=== PATIENT | female | born 1980 | race Caucasian/White ===

== ENCOUNTER 2017-11-23 10:15 | Emergency (ER) | payer OTHER ==
[2017-11-23 10:39] VITALS: BP 143/81
--- NOTE | 2017-11-23 11:02 | UC ---
Throat Pain/Nasal Paulino HPI - HPI Summary HPI Summary: Patient to urgent care today with chief complaint 2 days of worsening sinus pain earaches upper jaw and teeth pain. Patient feels like she can't breathe well through her nose. - History of Current Complaint Chief Complaint: UCEar Stated Complaint: EAR ACHE, AND TOOTH ACHE Time Seen by Provider: 11/23/17 10:47 Hx Obtained From: Patient Hx Last Menstrual Period: 09/08/14 ?: No Onset/Duration: Sudden Onset, Lasting Days - 2, Still Present, Worse Since - Last night Severity: Moderate Pain Intensity: 7 Pain Scale Used: 0-10 Numeric Cough: None Associated Signs & Symptoms: Positive: Sinus Discomfort, Nasal Discharge, Fever - Allergies/Home Medications Allergies/Adverse Reactions: Allergies Allergy/AdvReac Type Severity Reaction Status Date / Time Sulfa (Sulfonamide Allergy Flushing Verified 11/23/17 10:39 Antibiotics) PMH/Surg Hx/FS Hx/Imm Hx Previously Healthy: Yes - Surgical History Surgical History: Yes Surgery Procedure, Year, and Place: bartholine cyst removal 09/20 - lanced - Family History Known Family History: Positive: None - Social History Occupation: Employed Full-time Lives: With Family Alcohol Use: Rare Substance Use Type: None Smoking Status (MU): Never Smoked Tobacco Review of Systems Constitutional: Chills, Fatigue Skin: Negative Eyes: Negative ENT: Ear Ache, Nasal Discharge, Sinus Congestion, Sinus Pain/Tenderness Respiratory: Cough Cardiovascular: Negative Gastrointestinal: Negative Genitourinary: Negative Motor: Negative Neurovascular: Negative Musculoskeletal: Negative Neurological: Headache Psychological: Negative Is Patient Immunocompromised?: No All Other Systems Reviewed And Are Negative: Yes Physical Exam Triage Information Reviewed: Yes Appearance: Ill-Appearing, Pain Distress, Obese Vital Signs: Initial Vital Signs Temp 98.0 F 11/23/17 10:34 Pulse 116 11/23/17 10:34 Resp 20 11/23/17 10:34 BP 143/81 11/23/17 10:34 Pulse Ox 98 11/23/17 10:34 Vital Signs Reviewed: No Eye Exam: Normal Eyes: Positive: Conjunctiva Clear ENT Exam: Normal ENT: Positive: Normal ENT inspection, Hearing grossly normal, Pharynx normal, Nasal congestion, Nasal drainage - Mild, Dental tenderness, Sinus tenderness, Uvula midline. Negative: Tonsillar swelling, Tonsillar exudate, Trismus, Muffled voice, Hoarse voice Dental Exam: Normal Neck exam: Normal Neck: Positive: Supple, Nontender, No Lymphadenopathy Respiratory Exam: Normal Respiratory: Positive: Chest non-tender, Lungs clear, Normal breath sounds, No respiratory distress, No accessory muscle use Cardiovascular Exam: Normal Cardiovascular: Positive: Pulses Normal, Brisk Capillary Refill, Tachycardia Musculoskeletal Exam: Normal Musculoskeletal: Positive: Strength Intact, ROM Intact, No Edema Neurological Exam: Normal Neurological: Positive: Alert, Muscle Tone Normal Psychological Exam: Normal Skin Exam: Normal Throat Pain/Nasal Course/Dx - Course Assessment/Plan: Plan to increase fluids continue with Mucinex D Tylenol ibuprofen nasal sprays and nasal rinses. should symptoms worsen or fail to improve over the next 7 days patient may start antibiotics. Patient also provided with a Diflucan in the event vaginal yeast. Patient encouraged to take probiotic if she starts the antibiotic - Differential Dx/Diagnosis Provider Diagnoses: Elevated blood pressure without diagnosis of hypertension acute rhinosinusitis Discharge - Discharge Plan Condition: Stable Disposition: HOME Prescriptions: Amoxicillin/Clavulanate TAB* [Augmentin TAB 875*] 875 mg PO BID #20 tab Fluconazole 150 MG (NF) [Diflucan 150 mg (NF)] 150 mg PO ONCE #1 tab Fluticasone NASAL SPRAY 50MCG* [Flonase NASAL SPRAY 50MCG*] 2 spray BOTH NARES DAILY #1 btl Patient Education Materials: Probiotic (By mouth), Rhinosinusitis (ED), Hypertension (ED), Nasal Rinse (ED), How to Use Nasal [place] (ED) Forms: *Work Release Referrals: Kari Castillo MD [Primary Care Provider] - 2 Weeks
== END 2017-11-23 11:07 | disposition home or self-care (01) ==
LOC: UCEAST 10:15
DX: J01.90 Acute sinusitis, unspecified (principal); R03.0 Elevated blood-pressure reading, without diagnosis of hypertension; Z88.2 Allergy status to sulfonamides
CPT/HCPCS: 99212; G0463

== ENCOUNTER 2018-09-14 09:26 | Emergency (ER) | payer OTHER ==
--- NOTE | 2018-09-14 09:27 | UC ---
Throat Pain/Nasal Paulino HPI - HPI Summary HPI Summary: 37 yo female presents with sore throat for 2 days. Today noticed white spots on her tonsils. She is tolerating po well. Denies fever, sinus symptoms, cough. - History of Current Complaint Stated Complaint: SORE THROAT, EAR PAIN Hx Obtained From: Patient Hx Last Menstrual Period: 09/08/14 Onset/Duration: Gradual Onset Severity: Mild Pain Intensity: 4 Pain Scale Used: 0-10 Numeric - Allergies/Home Medications Allergies/Adverse Reactions: Allergies Allergy/AdvReac Type Severity Reaction Status Date / Time Sulfa (Sulfonamide Allergy Flushing Verified 09/14/18 09:35 Antibiotics) Home Medications: Home Medications Doxylamine/Phenylep/Dm/Aspirin [[place] Day-Night Tab Eff] 1 tab PO BID PRN 09/14/18 [History Confirmed 09/14/18] PMH/Surg Hx/FS Hx/Imm Hx - Additional Past Medical History Additional PMH: None - Surgical History Surgical History: Yes Surgery Procedure, Year, and Place: bartholine cyst removal 09/20 - lanced - Family History Known Family History: Positive: None - Social History Occupation: Employed Full-time Lives: With Family Alcohol Use: Rare Substance Use Type: None Smoking Status (MU): Never Smoked Tobacco Review of Systems All Other Systems Reviewed And Are Negative: Yes Constitutional: Positive: Negative Skin: Positive: Negative Eyes: Positive: Negative ENT: Positive: Sore Throat Respiratory: Positive: Negative Cardiovascular: Positive: Negative Gastrointestinal: Positive: Negative Neurological: Positive: Negative Psychological: Positive: Negative Physical Exam - Summary Physical Exam Summary: GENERAL: NAD. WDWN. No pain distress. SKIN: No rashes, sores, lesions, or open wounds. HEENT: Head: AT/NC Eyes: Conjunctiva clear without inflammation or discharge. Ears: Hearing grossly normal. TMs intact, no bulging, erythema, or edema. Nose: Nasal mucosa pink and moist. NTTP maxillary and frontal sinus. Throat: Posterior oropharynx mild erythema and 3+ tonsillar enlargement. Moderate yellow/white exudate on right tonsil. Uvula midline. No hoarse voice or muffled voice. NECK: Supple. Nontender. No lymphadenopathy. CHEST: CTAB. No r/r/w. No accessory muscle use. Breathing comfortably and in no distress. CV: RRR. Without m/r/g. Pulses intact. Cap refill <2seconds NEURO: Alert. PSYCH: Age appropriate behavior. Triage Information Reviewed: Yes Vital Signs: Vital Signs: Temp Pulse Resp BP Pulse Ox 97.7 F 85 20 139/62 98 09/14/18 09:29 09/14/18 09:29 09/14/18 09:29 09/14/18 09:29 09/14/18 09:29 Laboratory Tests 09/14/18 09:35 Group A Strep Rapid Negative Vital Signs Reviewed: Yes Throat Pain/Nasal Course/Dx - Course Course Of Treatment: POC strep negative. Suspect viral tonsillitis. Discussed with pt and she declined viscous lidocaine, but elected to try a short course of steroids for reduction of tonsillar enlargement and inflammation. - Differential Dx/Diagnosis Provider Diagnosis: Tonsillitis Discharge - Sign-Out/Discharge Documenting (check all that apply): Patient Departure All imaging exams completed and their final reports reviewed: No Studies - Discharge Plan Condition: Stable Disposition: HOME Prescriptions: predniSONE TAB* [Deltasone 10 MG TAB*] 10 mg PO DAILY #14 tab Patient Education Materials: Tonsillitis (ED) Referrals: Kari Castillo MD [Primary Care Provider] - Additional Instructions: If you develop a fever, shortness of breath, chest pain, new or worsening symptoms - please call your PCP or go to the ED. Your blood pressure was high at todays visit. Please see your primary provider within 4 weeks for recheck and re-evaluation. - Billing Disposition and Condition Condition: STABLE Disposition: Home
[2018-09-14 09:34] VITALS: BP 139/62
== END 2018-09-14 09:45 | disposition home or self-care (01) ==
LOC: UCEAST 09:26
DX: J03.90 Acute tonsillitis, unspecified (principal); H92.09 Otalgia, unspecified ear; Z88.2 Allergy status to sulfonamides; Z79.82 Long term (current) use of aspirin
CPT/HCPCS: 87651; 99212; G0463

== ENCOUNTER 2019-06-21 12:39 | Emergency (ER) | payer OTHER ==
[2019-06-21 12:55] VITALS: BP 131/73
--- NOTE | 2019-06-21 13:03 | UC ---
Throat Pain/Nasal Paulino HPI - HPI Summary HPI Summary: 38 y/o female presents to the urgent care c/o sore throat, sinus pressure and bilateral ear pain since 06/16/2019. Pt reports sore throat started first and then URI symptoms developed. Now w/ yellowish nasal discharge and PND. She noticed some white stops in her tonsils yesterday. Pain w/ swallowing is 7/10 associated w/ sinus pain and B/l ear pain. She has taken OTC medications w/o any improvement. Pt states her niece and sister have similar symptoms. Pt denies fever, dizziness, SOB, chest pain, abdominal pain, N/v/d. - History of Current Complaint Chief Complaint: UCRespiratory Stated Complaint: SINUS ISSUE SORE THROAT Time Seen by Provider: 06/21/19 13:01 Hx Obtained From: Patient Hx Last Menstrual Period: 3 wks ago ?: No Onset/Duration: Gradual Onset, Lasting Days - 6 days, Still Present, Worse Since - yesterday sore throat w/ white spots Severity: Moderate Pain Intensity: 7 Pain Scale Used: 0-10 Numeric Cough: Nonproductive Associated Signs & Symptoms: Positive: Hoarseness - mild, Sinus Discomfort, Nasal Discharge - yellowish. Negative: Dysphagia, Fever - Epiglottits Risk Factors Epiglottis Risk Factors: Negative - Allergies/Home Medications Allergies/Adverse Reactions: Allergies Allergy/AdvReac Type Severity Reaction Status Date / Time Sulfa (Sulfonamide Allergy [place] Verified 06/21/19 12:55 Antibiotics) PMH/Surg Hx/FS Hx/Imm Hx Previously Healthy: Yes - Pt denies PMHX - Surgical History Surgical History: Yes Surgery Procedure, Year, and Place: bartholine cyst removal 09/20 - lanced - Family History Family History: kidney disease - Social History Occupation: Employed Full-time Lives: With Family Alcohol Use: Rare Substance Use Type: None Smoking Status (MU): Never Smoked Tobacco - Immunization History Most Recent Tetanus Shot: UNK Review of Systems All Other Systems Reviewed And Are Negative: Yes Constitutional: Positive: Negative Skin: Positive: Negative Eyes: Positive: Negative ENT: Positive: Sore Throat, Ear Ache - B/L ear pain and pressure, Nasal Discharge - yellowish, Sinus Congestion, Sinus Pain/Tenderness, Other - PND and hoarness Respiratory: Positive: Cough - dry Cardiovascular: Positive: Negative Gastrointestinal: Positive: Negative Genitourinary: Positive: Negative Motor: Positive: Negative Neurovascular: Positive: Negative Musculoskeletal: Positive: Negative Neurological: Positive: Negative Psychological: Positive: Negative Is Patient Immunocompromised?: No Physical Exam - Summary Physical Exam Summary: VITAL SIGNS: Reviewed. GENERAL: Patient is a well developed and nourished obese female who is sitting comfortable in the examining table. Patient is not in any acute respiratory distress. HEAD AND FACE: No signs of trauma. No ecchymosis, hematomas or skull depressions. B/L frontal and maxillary sinus tenderness on percussion. EYES: PERRLA, EOMI x 2, No injected conjunctiva, no nystagmus. No photophobia. EARS: Hearing grossly intact. Ear canals and tympanic membranes are within normal limits. MOUTH: Positive pharynx with erythema, exudates, palatal petechiae. RT tonsillar enlargement with exudate. Uvula in midline. NECK: Supple, trachea is midline, Positive anterior cervical lymphadenopathy, no JVD, no carotid bruit, no c-spine tenderness, neck with full ROM. No meningeal signs, no Kernig's or brudzinskis signs. CHEST: Symmetric, no tenderness at palpation LUNGS: Clear to auscultation bilaterally. No wheezing or crackles. CVS: Regular rate and rhythm, S1 and S2 present, no murmurs or gallops appreciated. ABDOMEN: Soft, non-tender. No signs of distention. No rebound no guarding, and no masses palpated. Bowel sounds are normal. EXTREMITIES: FROM in all major joints, no edema, no cyanosis or clubbing. NEURO: Alert and oriented x 3. No acute neurological deficits. Speech is normal and follows commands. SKIN: Dry and warm Triage Information Reviewed: Yes Vital Signs: Initial Vital Signs Temp 97.8 F 06/21/19 12:53 Pulse 70 06/21/19 12:53 Resp 12 06/21/19 12:53 BP 131/73 06/21/19 12:53 Pulse Ox 98 06/21/19 12:53 Throat Pain/Nasal Course/Dx - Course Course Of Treatment: 38 y/o female presents to the urgent care c/o sore throat, sinus pressure and bilateral ear pain since 06/16/2019. Pt reports sore throat started first and then URI symptoms developed. Now w/ yellowish nasal discharge and PND. She noticed some white stops in her tonsils yesterday. Pain w/ swallowing is 7/10 associated w/ sinus pain and B/l ear pain. She has taken OTC medications w/o any improvement. Pt states her niece and sister have similar symptoms. Pt denies fever, dizziness, SOB, chest pain, abdominal pain, N/v/d. Hx obtained. Pt w/ acute pharyngitis and sinusitis on examination. Rt tonsil w/ white exudate. Rapid strep: negative. Pt declined Mononucleosis test. Advised on hand washing to avoid spreading. Pt advised to rest, eat well and avoid strenuous exercise. If symptoms do not improve or worsen advised to return to the urgent care or f/u with her PCP in 3 days for further evaluation and treatment.Pt advised symptomatic treatment, rest her voice and to continue taking Sudafed. Rx Flonase nasal spray, increase fluid intake, rest and eat well. Take Ibuprofen PO for sinus pain or headache, Throat culture ordered and sent to lab. Pt will be notified of any abnormality for further management. Pt explained D/C instructions. Pt understood and agreed with plan of care. - Differential Dx/Diagnosis Differential Diagnosis/HQI/PQRI: Influenza, Laryngitis, Mononucleosis, Otitis Media, Pharyngitis, Sinusitis, Tonsillitis, URI Provider Diagnosis: Acute pharyngitis, Sinusitis, acute Discharge ED - Sign-Out/Discharge Documenting (check all that apply): Patient Departure - D/C home All imaging exams completed and their final reports reviewed: No Studies - Discharge Plan Condition: Stable Disposition: HOME Prescriptions: Fluticasone NASAL SPRAY 50MCG* [Flonase NASAL SPRAY 50MCG*] 2 spray BOTH NARES DAILY #1 btl Patient Education Materials: Pharyngitis (ED), Sinusitis (ED) Forms: *Work Release Referrals: Kari Csatillo MD [Primary Care Provider] - 3 Days Additional Instructions: 1- Please take ibuprofen PO q6-8hrs prn as instructed after meals to alleviate pain and swelling. Increase fluid intake, eat well, rest and avoid strenuous exercise 2-Use Flonase as directed to help drain fluid. Also buy saline drops to clear sinuses 3-Continue taking Sudafed PO to alleviates sinus congestion 4-If symptoms do not improve or worsen please return to the urgent care or f/u with your PCP for further evaluation and treatment. 5-Rapid strep: negative. Throat culture was sent to the lab. You will be notified of any abnormality for further management. - Billing Disposition and Condition Condition: STABLE Disposition: Home
== END 2019-06-21 13:38 | disposition home or self-care (01) ==
LOC: UCEAST 12:39
DX: J02.9 Acute pharyngitis, unspecified (principal); J01.90 Acute sinusitis, unspecified; Z88.2 Allergy status to sulfonamides
CPT/HCPCS: 87070; 87651; 99212; G0463